=== PATIENT | male | born 1945 | race Caucasian/White ===

== ENCOUNTER 2024-04-12 17:05 | Outpatient (CLI) | payer MEDICARE | END 2024-04-12 17:06 | disposition home or self-care (01) | LOC: CSHRAD 17:05 | PROVIDERS: ATTEND Nurse Practitioner Family | DX: S69.92XA Unspecified injury of left wrist, hand and finger(s), initial encounter (principal); M18.9 Osteoarthritis of first carpometacarpal joint, unspecified ==